=== PATIENT | male | born 1955 ===

== ENCOUNTER → 2017-05-19 08:09 | Emergency (ER) | payer OTHER ==
--- NOTE | 2017-05-19 09:12 | ED ---
Skin Complaint - HPI Summary HPI Summary: Patient presents with possible bug bite to the posterior knee with LOUIS and fevers x 7 days. He first noted the bug bite as an "itch" and the area later became red and inflamed. Denies pruritis or pain. Now the area has grown and is warm, erythematous, with a central raised area suggesting a bug bite. It does not appear to be a typical EM rash as there is no central clearing or target lesion. He is otherwise healthy. PMHx includes hypothyroid. Currently taking levothyroxine. He has taken Nyquil and tylenol with relief of LOUIS and Fever. Today he arrives afebrile and otherwise feeling well. Never been dx with lyme disease. He lives near the [facility] and is outside frequently. - History of Current Complaint Chief Complaint: EDHeadache Time Seen by Provider: 05/19/17 08:43 Stated Complaint: HEADACHE/FEVER 4DAYS-POSS TICK Hx Obtained From: Patient Onset/Duration: Started Weeks Ago Skin Exposure Onset/Duration: Weeks Ago Timing: Constant Onset Severity: Moderate Current Severity: Moderate Pain Intensity: 3 Pain Scale Used: 0-10 Numeric Skin Location: Other: - posterior knee Character: Redness, Raised Aggravating Symptom(s): Nothing Alleviating Symptom(s): Nothing Associated Signs & Symptoms: Fever, Rash Related History: Insect Bite/Sting, Possible Reaction to: Insect - Allergy/Home Medications Allergies/Adverse Reactions: Allergies Allergy/AdvReac Type Severity Reaction Status Date / Time No Known Allergies Allergy Verified 11/07/15 13:40 PMH/Surg Hx/FS Hx/Imm Hx Previously Healthy: Yes Endocrine/Hematology History: Reports: Hx Thyroid Disease Infectious Disease History: No Infectious Disease History: Reports: Traveled Outside the [place] in Last 30 Days - POOL Denies: Hx Clostridium Difficile, Hx Hepatitis, Hx Human Immunodeficiency Virus (HIV), Hx of Known/Suspected MRSA, Hx Shingles, Hx Tuberculosis, Hx Known/ Suspected VRE, Hx Known/Suspected VRSA, History Other Infectious Disease - Social History Occupation: Unemployed Lives: With Family Alcohol Use: Rare Alcohol Amount: One glass of wine daily Hx Substance Use: No Substance Use Type: Reports: None Hx Tobacco Use: No Smoking Status (MU): Never Smoked Tobacco Do You Chew or Dip Tobacco: No Have You Smoked in the Last Year: No Review of Systems Positive: Fever Eyes: Negative ENT: Negative Cardiovascular: Negative Respiratory: Negative Positive: no symptoms reported, pain Musculoskeletal: Negative Positive: Rash - posterior knee with erythematous warm area measuring 7cm by 7cm with no central clearing Positive: Headache All Other Systems Reviewed And Are Negative: Yes Physical Exam Triage Information Reviewed: Yes Vital Signs On Initial Exam: Initial Vitals Temp Pulse Resp BP Pulse Ox 98.4 F 90 16 106/62 97 05/19/17 08:13 05/19/17 08:13 05/19/17 08:13 05/19/17 08:13 05/19/17 08:13 Vital Signs Reviewed: Yes Appearance: Positive: Well-Appearing, Well-Nourished Skin: Positive: Warm, Skin Color Reflects Adequate Perfusion, Other - posterior knee with erythematous warm area measuring 7cm by 7cm with no central clearing Head/Face: Positive: Normal Head/Face Inspection Eyes: Positive: EOMI, MARK, Conjunctiva Clear Neck: Positive: Supple, Nontender Respiratory/Lung Sounds: Positive: Clear to Auscultation, Breath Sounds Present Cardiovascular: Positive: Normal, RRR, Pulses are Symmetrical in both Upper and Lower Extremities Musculoskeletal: Positive: Normal, Strength/ROM Intact Neurological: Positive: Sensory/Motor Intact, Alert, Oriented to Person Place, Time Psychiatric: Positive: Normal Diagnostics - Vital Signs Vital Signs Temp Pulse Resp BP Pulse Ox 05/19/17 08:13 98.4 F 90 16 106/62 97 - Laboratory Lab Statement: Any lab studies that have been ordered have been reviewed, and results considered in the medical decision making process. Course/Dx - Course Course Of Treatment: 7x7 erythematous area with central raised area resembling a bug bite which is warm to touch over posterior right knee. It does not appear to be a typical EM rash as there is no central clearing or target lesion, however coupled with LOUIS and intermittent fevers, it was discussed with patient this could be the LYME rash or a bug bite which became infected now causing these accessory symptoms. Today patient is afebrile and denies LOUIS. Treatment options discussed and ultimately decided based on ISDA guidelines of endemic area of lyme, rash and ancillary symptoms, will treat for lyme disease despite not seeing a tick or typical EM rash. Patient agrees with this plan. Return precautions explained and side effects of doxycycline explained to patient. Ok for discharge. - Differential Diagnoses - Skin Complaint Differential Diagnoses: Cellulitis, Drug Rash, Tick Born Illness, Urticaria - Diagnoses Provider Diagnoses: Bug bite with infection Discharge - Discharge Plan Condition: Stable Disposition: HOME Prescriptions: DOXYcycline CAP(*) [DOXYcycline 100MG CAP(*)] 100 mg PO BID #28 cap Patient Education Materials: Lyme Disease (ED), Tick Bite (ED) Referrals: Brian Edouard MD [Primary Care Provider] - Additional Instructions: Take the doxycycline twice daily with food If you experience upset stomach, please call your PCP Follow up with PCP for further workup We are treating today for a potential tick bite due to rash to prevent the spread of lyme disease
[2017-05-19 09:25] VITALS: BP 100/61
== END | disposition home or self-care (01) ==
LOC: ED 08:09
DX: S80.269A Insect bite (nonvenomous), unspecified knee, initial encounter (principal); R51 Headache; R50.9 Fever, unspecified; W57.XXXA Bitten or stung by nonvenomous insect and other nonvenomous arthropods, initial encounter; Y93.9 Activity, unspecified; Y92.9 Unspecified place or not applicable
CPT/HCPCS: 99281

== ENCOUNTER 2018-01-09 08:37 | Emergency (ER) | payer OTHER ==
[2018-01-09 08:53] VITALS: BP 113/66
--- NOTE | 2018-01-09 09:49 | UC ---
Respiratory Complaint HPI - HPI Summary HPI Summary: 3-4 days of mild uri sx, cough ST is concerned he has the flu---no fevers chills , muscle aches, fatigue - History of Current Complaint Chief Complaint: UCRespiratory Stated Complaint: RESP COMPLAINT Time Seen by Provider: 01/09/18 09:38 Hx Obtained From: Patient Onset/Duration: Gradual Onset, Lasting Days - 4, Still Present Timing: Constant Severity Initially: Mild Severity Currently: Mild Pain Intensity: 0 Pain Scale Used: 0-10 Numeric Character: Cough: Nonproductive Alleviating Factors: Other - Nyquil Associated Signs And Symptoms: Positive: URI - Allergies/Home Medications Allergies/Adverse Reactions: Allergies Allergy/AdvReac Type Severity Reaction Status Date / Time No Known Allergies Allergy Verified 01/09/18 08:52 Home Medications: Home Medications Dm/Acetaminophen/Doxylamine [Vicks Nyquil Cold & Flu N] 1 liq PO 01/09/18 [ History] PMH/Surg Hx/FS Hx/Imm Hx Previously Healthy: No Endocrine History: Hypothyroidism - Surgical History Surgical History: None - Family History Known Family History: Positive: None - Social History Occupation: Employed Full-time Lives: With Family Alcohol Use: Daily Alcohol Amount: One glass of wine daily Substance Use Type: None Smoking Status (MU): Never Smoked Tobacco Have You Smoked in the Last Year: No Review of Systems Constitutional: Negative Skin: Negative Eyes: Negative ENT: Sore Throat, Nasal Discharge Respiratory: Cough Cardiovascular: Negative Gastrointestinal: Negative Genitourinary: Negative Motor: Negative Neurovascular: Negative Musculoskeletal: Negative Neurological: Negative Psychological: Negative Is Patient Immunocompromised?: No All Other Systems Reviewed And Are Negative: Yes Physical Exam Triage Information Reviewed: Yes Appearance: Well-Appearing, No Pain Distress, Well-Nourished Vital Signs: Initial Vital Signs Temp 99.0 F 01/09/18 08:50 Pulse 81 01/09/18 08:50 Resp 18 01/09/18 08:50 BP 113/66 01/09/18 08:50 Pulse Ox 99 01/09/18 08:50 Vital Signs Reviewed: Yes Eye Exam: Normal Eyes: Positive: Conjunctiva Clear ENT Exam: Normal ENT: Positive: Normal ENT inspection, Hearing grossly normal, Pharynx normal, TMs normal, Uvula midline. Negative: Nasal congestion, Nasal drainage, Tonsillar swelling, Tonsillar exudate, Trismus, Muffled voice, Hoarse voice, Dental tenderness, Sinus tenderness Dental Exam: Normal Neck exam: Normal Neck: Positive: Supple, Nontender, No Lymphadenopathy Respiratory Exam: Normal Respiratory: Positive: Chest non-tender, Lungs clear, Normal breath sounds, No respiratory distress, No accessory muscle use Cardiovascular Exam: Normal Cardiovascular: Positive: RRR, No Murmur, Pulses Normal, Brisk Capillary Refill Musculoskeletal Exam: Normal Musculoskeletal: Positive: Strength Intact, ROM Intact, No Edema Neurological Exam: Normal Neurological: Positive: Alert, Muscle Tone Normal Psychological Exam: Normal Skin Exam: Normal UC Diagnostic Evaluation - Laboratory O2 Sat by Pulse Oximetry: 99 Diagnostic Studies Comment: influenza A/B (-) Respiratory Course/Dx - Course Course Of Treatment: increase fluids, otc medications for symptom relief follow with pcp prn - Differential Dx/Diagnosis Provider Diagnoses: URI Discharge - Discharge Plan Condition: Stable Disposition: HOME Patient Education Materials: Upper Respiratory Infection (ED), Viral Syndrome ( ED) Referrals: Brian Edouard MD [Primary Care Provider] - If Needed
== END 2018-01-09 09:56 | disposition home or self-care (01) ==
LOC: UCEAST 08:37
DX: J06.9 Acute upper respiratory infection, unspecified (principal); E03.9 Hypothyroidism, unspecified
CPT/HCPCS: 87502; 99211; G0463